=== PATIENT | male | born 1985 | race Caucasian/White ===

== ENCOUNTER 2016-05-01 13:52 | Emergency (ER) | payer SELFPAY ==
[~2016-05-01] VITALS: Ht 170.2 cm; Wt 89.5 kg
[~2016-05-01 13:52] MED LIST: DOXY100T17 PO; LORT5TAB PO; SULF1TAB47 PO; Z.0.NO CURRENT MEDS; [UNRECOGNIZED DRUG - CODE] EX
[2016-05-01 13:53] VITALS: BP 147/98; PULSE 119; RESP 16; TEMP 98.1; O2SAT 98
[2016-05-01] MEDS ORDERED: ADDE30TA PO (14:38)
--- NOTE | 2016-05-01 14:41 | PD ---
HPI Chief Complaint: GI Complaint Time Seen by Provider: 14:31 Travel History International Travel<30 days: No Contact w/Intl Traveler<30days: No Traveled to known affect area: No History of Present Illness HPI This patient complains of bright red rectal bleeding. Duration one week. Severity is mild to moderate. No presyncopal symptoms. He has had some pubic area abdominal cramps. No vomiting or diarrhea or fever. No prior history of GI bleeding. Takes no blood thinners. No alleviating factors. PFSH Past Medical History Hypertension: Yes Social History Alcohol Use: No Tobacco Use: No Allergies-Medications (Allergen,Severity, Reaction): Coded Allergies: Penicillin (Verified Allergy, Unknown, WAS TOLD BY MOTHER, 05/01/16) Reported Meds & Prescriptions Reported Meds & Active Scripts Active Reported Adderall (Amphetamine-Dextroamphetamine) 30 Mg Tab 30 Mg PO TID Avoid late evening doses. Space doses at least 4 to 6 hours if more than once/day dosing. Review of Systems General / Constitutional: No: Fever Eyes: No: Visual changes HENT: No: Headaches Cardiovascular: No: Chest Pain or Discomfort Respiratory: No: Shortness of Breath Gastrointestinal: Positive: Abdominal Pain, Hematochezia Genitourinary: No: Dysuria Musculoskeletal: No: Pain Skin: No Rash Neurologic: No: Weakness Psychiatric: No: Depression Endocrine: No: Polydipsia Hematologic/Lymphatic: No: Easy Bruising Physical Exam Narrative GENERAL: Well-nourished, well-developed patient in no apparent distress. SKIN: Warm and dry. HEAD: Atraumatic. Normocephalic. EYES: Pupils equal and round. No scleral icterus. No injection or drainage. ENT: No nasal bleeding or discharge. Mucous membranes pink and moist. NECK: Trachea midline. No JVD. CARDIOVASCULAR: Regular rate and rhythm. No murmur appreciated. RESPIRATORY: No accessory muscle use. Clear to auscultation. Breath sounds equal bilaterally. GASTROINTESTINAL: Abdomen soft, non-tender, nondistended. Hepatic and splenic margins not palpable. MUSCULOSKELETAL: No obvious deformities. No clubbing. No cyanosis. No edema. NEUROLOGICAL: Awake and alert. No obvious cranial nerve deficits. Motor grossly within normal limits. Normal speech. PSYCHIATRIC: Appropriate mood and affect; insight and judgment normal. Rectal: No external hemorrhoid or fissure Data Data Last Documented VS Vital Signs Date Time Temp Pulse Resp B/P Pulse Ox O2 Delivery O2 Flow Rate FiO2 05/01/16 13:53 98.1 119 16 147/98 98 Orders Iv Access Insert/Monitor (05/01/16 14:35) Complete Blood Count With Diff (05/01/16 14:35) Labs Laboratory Tests Test 05/01/16 14:45 White Blood Count 11.8 TH/MM3 Red Blood Count 5.71 MIL/MM3 Hemoglobin 15.1 GM/DL Hematocrit 47.8 % Mean Corpuscular Volume 83.7 FL Mean Corpuscular Hemoglobin 26.4 PG Mean Corpuscular Hemoglobin 31.6 % Concent Red Cell Distribution Width 13.7 % Platelet Count 330 TH/MM3 Mean Platelet Volume 7.7 FL Neutrophils (%) (Auto) 66.1 % Lymphocytes (%) (Auto) 24.4 % Monocytes (%) (Auto) 6.9 % Eosinophils (%) (Auto) 1.1 % Basophils (%) (Auto) 1.5 % Neutrophils # (Auto) 7.8 TH/MM3 Lymphocytes # (Auto) 2.9 TH/MM3 Monocytes # (Auto) 0.8 TH/MM3 Eosinophils # (Auto) 0.1 TH/MM3 Basophils # (Auto) 0.2 TH/MM3 CBC Comment DIFF FINAL Differential Comment MDM Medical Decision Making Medical Screen Exam Complete: Yes Emergency Medical Condition: Yes Medical Record Reviewed: Yes Differential Diagnosis Internal hemorrhoid, polyp, colitis Narrative Course I have reviewed the patient's electronic medical record. IV placed CBC shows normal hemoglobin Abdomen is soft and benign and nontender I don't have any clinical suspicion of emergent intra-abdominal process. Recommended GI follow-up to evaluate his lower GI bleed. Pain medicine written Diagnosis Primary Impression: Hematochezia Additional Instructions: The patient was advised to follow up with GI physician and return if they worsen. The patient was warned about potential sedation for the medications they will receive on prescription. Med/Other Pt SpecificInfo: Prescription(s) given Scripts Acetaminophen-Codeine (Tylenol-Codeine #3)300-30 mg Tab1 Tab PO Q6HR PRN (PAIN) #20 TAB Ref 0 Prov:Guerrero Castro MD 05/01/16 Disposition: 01 DISCHARGE HOME Condition: Stable Guerrero Castro MD May 01, 2016 14:41
[2016-05-01 14:58] LABS: AUTOMATED NEUTROPHIL # 7.8 TH/MM3 (1.8-7.7); BASOPHIL # 0.2 TH/MM3 (0-0.2); BASOPHIL % 1.5 % (0.0-2.0); EOSINOPHIL # 0.1 TH/MM3 (0-0.4); EOSINOPHIL % 1.1 % (0.0-4.0); HEMATOCRIT 47.8 % (39.0-51.0); HEMO FLAGS DIFF FINAL; LYMPH % 24.4 % (9.0-44.0); LYMPHOCYTE # 2.9 TH/MM3 (1.0-4.8); MEAN CELL VOLUME 83.7 FL (80.0-100.0); MEAN CORPUSCULAR HEMOGLOBIN 26.4 PG (27.0-34.0); MEAN CORPUSCULAR HGB CONC 31.6 % (32.0-36.0); MONO % 6.9 % (0.0-8.0); NEUT % 66.1 % (16.0-70.0); PLATELET COUNT 330 TH/MM3 (150-450); RED BLOOD COUNT 5.71 MIL/MM3 (4.50-5.90); RED CELL DISTRIBUTION WIDTH 13.7 % (11.6-17.2); WHITE BLOOD COUNT 11.8 TH/MM3 (4.0-11.0)
[2016-05-01] MEDS ORDERED: TYLETAB34 PO (15:52)
[2016-05-01 16:05] VITALS: BP 140/90; PULSE 96; RESP 18; O2SAT 98
== END 2016-05-01 16:05 | disposition home or self-care (01) ==
LOC: PHED 13:52
DX: K92.1 Melena (principal); I10 Essential (primary) hypertension
CPT/HCPCS: 85025; 99284

== ENCOUNTER 2016-09-18 21:14 | Emergency (ER) | payer SELFPAY ==
[~2016-09-18] VITALS: Ht 170.2 cm; Wt 85.0 kg
[~2016-09-18 21:14] MED LIST changes: +ADDE30TA PO; -DOXY100T17 PO; -LORT5TAB PO; -SULF1TAB47 PO; +TYLETAB34 PO; -Z.0.NO CURRENT MEDS; -[UNRECOGNIZED DRUG - CODE] EX
[2016-09-18 21:17] VITALS: BP 157/95; PULSE 80; RESP 16; TEMP 97.8; O2SAT 97
--- NOTE | 2016-09-18 23:02 | PD ---
HPI Chief Complaint: Suicide Ideation/Attempt Time Seen by Provider: 23:02 Travel History International Travel<30 days: No Contact w/Intl Traveler<30days: No Traveled to known affect area: No History of Present Illness HPI 31-year-old male came to the emergency room with history of depression and suicidal ideation. He says that he met with his family after 26 years and there has been a lot of stressful issues going on. He relapsed into IV Dilaudid abuse after being clean for 3 months and thing that this could be the main reason for that. He currently has left the house and is here with his luggage. He's been thinking of hurting himself by slitting his throat or walking in front of traffic. He does not have any psych diagnosis. He has history of ADHD. [facility] Past Medical History Narrative Medical List of her past medical, surgical, social and family history was reviewed from the nursing note. ADHD: Yes Hypertension: Yes Past Surgical History Surgical History: No Previous Surgery Social History Alcohol Use: No Tobacco Use: Yes (1/2 PPD) Substance Use: No Allergies-Medications (Allergen,Severity, Reaction): Coded Allergies: Penicillin (Verified Allergy, Unknown, WAS TOLD BY MOTHER, 09/18/16) Comments List of his allergies reviewed from the nursing note. Reported Meds & Prescriptions Reported Meds & Active Scripts Active No Active Prescriptions or Reported Medications Narrative Medication List of his home medications reviewed from the nursing note. Review of Systems Except as stated in HPI: all other systems reviewed are Neg Physical Exam Narrative GENERAL: Awake, alert, flat affect SKIN: Focused skin assessment warm/dry. HEAD: Atraumatic. Normocephalic. EYES: Pupils equal and round. No scleral icterus. No injection or drainage. ENT: No nasal bleeding or discharge. Mucous membranes pink and moist. NECK: Trachea midline. No JVD. CARDIOVASCULAR: Regular rate and rhythm. No murmur appreciated. RESPIRATORY: No accessory muscle use. Clear to auscultation. Breath sounds equal bilaterally. GASTROINTESTINAL: Abdomen soft, non-tender, nondistended. Hepatic and splenic margins not palpable. MUSCULOSKELETAL: No obvious deformities. No clubbing. No cyanosis. No edema. NEUROLOGICAL: Awake and alert. No obvious cranial nerve deficits. Motor grossly within normal limits. Normal speech. PSYCHIATRIC: Appropriate mood and affect; insight and judgment normal. Data Data Last Documented VS Vital Signs Date Time Temp Pulse Resp B/P Pulse Ox O2 Delivery O2 Flow Rate FiO2 09/19/16 02:22 82 16 140/82 97 09/18/16 21:17 97.8 Orders Complete Blood Count With Diff (09/18/16 23:04) Comprehensive Metabolic Panel (09/18/16 23:04) Psych Screen (09/18/16 23:04) Drug Screen, Random Urine (09/18/16 23:04) Alcohol (Ethanol) (09/18/16 23:04) Nicotine 21 Mg Patch.24 Hr (Habitrol 21 (09/19/16 01:30) Diet Regular Basic (09/19/16 Breakfast) Diet Regular Basic (09/19/16 Lunch) Labs Laboratory Tests Test 09/18/16 23:40 White Blood Count 10.2 TH/MM3 Red Blood Count 5.09 MIL/MM3 Hemoglobin 14.2 GM/DL Hematocrit 42.8 % Mean Corpuscular Volume 84.2 FL Mean Corpuscular Hemoglobin 27.9 PG Mean Corpuscular Hemoglobin 33.1 % Concent Red Cell Distribution Width 15.3 % Platelet Count 257 TH/MM3 Mean Platelet Volume 7.9 FL Neutrophils (%) (Auto) 66.9 % Lymphocytes (%) (Auto) 25.0 % Monocytes (%) (Auto) 6.3 % Eosinophils (%) (Auto) 1.2 % Basophils (%) (Auto) 0.6 % Neutrophils # (Auto) 6.8 TH/MM3 Lymphocytes # (Auto) 2.5 TH/MM3 Monocytes # (Auto) 0.6 TH/MM3 Eosinophils # (Auto) 0.1 TH/MM3 Basophils # (Auto) 0.1 TH/MM3 CBC Comment DIFF FINAL Differential Comment Sodium Level 139 MEQ/L Potassium Level 4.0 MEQ/L Chloride Level 106 MEQ/L Carbon Dioxide Level 27.5 MEQ/L Anion Gap 6 MEQ/L Blood Urea Nitrogen 12 MG/DL Creatinine 0.79 MG/DL Estimat Glomerular Filtration 114 ML/MIN Rate Random Glucose 116 MG/DL Calcium Level 9.2 MG/DL Total Bilirubin 0.3 MG/DL Aspartate Amino Transf 98 U/L (AST/SGOT) Alanine Aminotransferase 361 U/L (ALT/SGPT) Alkaline Phosphatase 60 U/L Total Protein 7.9 GM/DL Albumin 3.7 GM/DL Urine Opiates Screen POS Urine Barbiturates Screen NEG Urine Amphetamines Screen NEG Urine Benzodiazepines Screen NEG Urine Cocaine Screen NEG Urine Cannabinoids Screen POS Ethyl Alcohol Level LESS THAN 3 MG/DL MDM Medical Decision Making Medical Screen Exam Complete: Yes Emergency Medical Condition: Yes Medical Record Reviewed: Yes Differential Diagnosis Major depression, suicidal ideation, opiate abuse Narrative Course 12:42 AM patient is medically cleared for psych screen. I have Scott acted him as well. Procedures EKG Prior to Arrival: No Diagnosis Primary Impression: Major depression Qualified Code: F32.2 - Severe single current episode of major depressive disorder, without psychotic features Additional Impressions: Suicidal ideation Polysubstance abuse Scripts No Active Prescriptions or Reported Meds Michelle Rodriguez MD Sep 18, 2016 23:02
[2016-09-18 23:55] LABS: AUTOMATED NEUTROPHIL # 6.8 TH/MM3 (1.8-7.7); BASOPHIL # 0.1 TH/MM3 (0-0.2); BASOPHIL % 0.6 % (0.0-2.0); EOSINOPHIL # 0.1 TH/MM3 (0-0.4); EOSINOPHIL % 1.2 % (0.0-4.0); HEMATOCRIT 42.8 % (39.0-51.0); HEMO FLAGS DIFF FINAL; LYMPHOCYTE # 2.5 TH/MM3 (1.0-4.8); MEAN CELL VOLUME 84.2 FL (80.0-100.0); MEAN CORPUSCULAR HEMOGLOBIN 27.9 PG (27.0-34.0); MEAN CORPUSCULAR HGB CONC 33.1 % (32.0-36.0); MONO % 6.3 % (0.0-8.0); NEUT % 66.9 % (16.0-70.0); PLATELET COUNT 257 TH/MM3 (150-450); RED BLOOD COUNT 5.09 MIL/MM3 (4.50-5.90); RED CELL DISTRIBUTION WIDTH 15.3 % (11.6-17.2); WHITE BLOOD COUNT 10.2 TH/MM3 (4.0-11.0)
[2016-09-19 00:07] LABS: AMPHETAMINE, URINE NEG (NEG); BARBITURATES, URINE NEG (NEG); COCAINE, URINE NEG (NEG)
[2016-09-19 00:19] LABS: ANION GAP 6 MEQ/L (5-15); AST (GOT) 98 U/L (15-37); BICARBONATE 27.5 MEQ/L (21.0-32.0); BLOOD UREA NITROGEN 12 MG/DL (7-18); CHLORIDE 106 MEQ/L (98-107); GLOMERULAR FILTRATION RATE 114 ML/MIN (>89); SODIUM (NA) 139 MEQ/L (136-145)
[2016-09-19 00:21] LABS: ALT (GPT) 361 U/L (12-78)
[2016-09-19 00:23] LABS: ALKALINE PHOSPHATASE 60 U/L (45-117); TOTAL BILIRUBIN ADULT 0.3 MG/DL (0.2-1.0)
[2016-09-19] MEDS ORDERED: NICOTINE 21 MG/24 HR PATCH T-DERMAL ONE (01:30)
[2016-09-19 02:22] VITALS: BP 140/82; PULSE 82; RESP 16; O2SAT 97
== END 2016-09-19 15:17 ==
LOC: NEPD 21:14 → NEPJ 09-19 15:17
DX: F32.2 Major depressive disorder, single episode, severe without psychotic features (principal); R45.851 Suicidal ideations; F19.10 Other psychoactive substance abuse, uncomplicated; I10 Essential (primary) hypertension; F17.200 Nicotine dependence, unspecified, uncomplicated; Z86.59 Personal history of other mental and behavioral disorders
CPT/HCPCS: 80053; 80307; 85025; 99285

== ENCOUNTER 2017-12-08 11:32 | Inpatient (IN) ==
[2017-12-08] MEDS ORDERED: Tetanus/Diphtheria Toxoid Adult Vaccine Inj 0.5 ML Vial IM ONE (11:55)
[2017-12-08] MEDS ORDERED: Clindamycin 600 mg/NS Premix 600 MG/50 ML PIGGYBACK IV.SIG ONE (11:55)
[2017-12-08] MEDS ORDERED: Lidocaine 1% Inj 50 ML Vial INFILTRATN ONE (11:55)
--- NOTE | 2017-12-08 12:01 | ED ---
HPI General Chief complaint: Skin/Abscess/Foreign Body Stated complaint: Lt arm abscess Source: patient Mode of arrival: ambulatory Limitations: no limitations History of Present Illness HPI narrative: Patient is a 32-year-old male with history of IV drug abuse, presents the emergency room with complaints of swelling to his left forearm and antecubital fossa after injecting methamphetamines to the site. Patient reports that he noticed increased swelling and pain to his left antecubital fossa, this is the first time that this has happened. Patient reports that he was seen at [facility] yesterday but left as he felt that staff were rude to him. Patient is unsure of when his last immunization for tetanus was. Patient reports that pain is severe, nothing makes it better or worse. Patient with no past medical history, denies any fevers or chills or any other complaints. Tetanus Immunization: Unsure Severity: moderate Severity scale (1-10): 5 Relieving factors: none Exacerbating factors: none Context: none and IVDA Associated symptoms: denies other symptoms Treatments prior to arrival: none Related Data Home Medications Medication Instructions Recorded Confirmed No Known Home Medications 12/08/17 12/08/17 Allergies Allergy/AdvReac Type Severity Reaction Status Date / Time penicillin G Allergy Severe Shortness Verified 12/08/17 11:41 of Breath Review of Systems ROS: all other systems reviewed are negative [facility] Medical History Medical History Patient denies medical problems (Acute) Social History Social History Substance History: Active Abuse Second Hand Smoke Exposure: No Smoking Status: Current every day smoker Tobacco Type: Cigarettes How Often Do You Have a Drink Containing Alcohol: 2 to 4 times a month Recent Travel in [facility] within the Last 8 Weeks: No Recent Out of Country Travel within the Last 8 Weeks: No Substance Abuse Detail Other: Substance Use Status: Active Route Used Substance Abuse: Intravenously Substance Frequency: DAILY Immunization History Tetanus Immunization: <5 Years Hx Influenza Vaccine This Season: No Exam Narrative Exam Narrative: GENERAL: moderate distress SKIN: Focused skin assessment warm/dry. HEAD: Atraumatic. Normocephalic. EYES: Pupils equal and round. No scleral icterus. No injection or drainage. ENT: No nasal bleeding or discharge. Mucous membranes pink and moist. NECK: Trachea midline. No JVD. CARDIOVASCULAR: Regular rate and rhythm. No murmur appreciated. RESPIRATORY: No accessory muscle use. Clear to auscultation. Breath sounds equal bilaterally. GASTROINTESTINAL: Abdomen soft, non-tender, nondistended. Hepatic and splenic margins not palpable. MUSCULOSKELETAL: No obvious deformities. No clubbing. No cyanosis. No edema. LUE: Patient with swelling to his left antecubital fossa with tenderness and induration with areas of fluctuance over area of abscess. Patient with no neurovascular compromise, pulses are intact and palpable. There is tenderness with range of motion to his left elbow due to the edema. NEUROLOGICAL: Awake and alert. No obvious cranial nerve deficits. Motor grossly within normal limits. Normal speech. PSYCHIATRIC: Appropriate mood and affect; insight and judgment normal. Procedures Abscess I/D Site: upper extremity Side (if applicable): left Anesthetic used: lidocaine 1% Technique: incised with #11 blade Amount of fluid expressed (mL): 20 Irrigation: Yes (1liter NS used to irrigate abscess) Packing used?: iodoform Complications: pain Course Initial Documented Vital Signs Temperature 99.2 F 12/08/17 11:38 Pulse Rate 133 H 12/08/17 11:38 Respiratory Rate 20 12/08/17 11:38 Blood Pressure 194/85 H 12/08/17 11:38 Pulse Oximetry 99 12/08/17 11:38 Last Documented Vital Signs Temperature 99.4 F 12/08/17 14:41 Pulse Rate 110 H 12/08/17 14:41 Respiratory Rate 18 12/08/17 14:41 Blood Pressure 147/79 H 12/08/17 14:41 Pulse Oximetry 100 12/08/17 14:41 Medical Decision Making [facility] Narrative Medical decision making narrative: During the course of the patients emergency department visit, the patients history, examination, and differential diagnosis were reviewed with the patient. The patient was placed on a monitoring coordinator with oximetry and frequent blood pressure monitoring. The patient had an IV access obtained and blood work sent for analysis. The patient was initially provided IV clindamycin as well as a tetanus update The patients laboratory studies were reviewed Patient has a white blood cell count of 21.3, CT of the elbow with contrast shows 2 abscess collections, one is superficial and the second is deeper within the musculature. I did not I&D his abscess as he most likely will need to go to the OR for I&D of this deep muscle abscess. I did review case with Dr. Valadez who accepts pt to service Case reviewed with Dr. Weston with orthopedic surgery, request I&D and packing in the ER, he does not require any operative surgical intervention in the emergency at [facility] Er for IV antibiotic administration. Orthopedic surgery does not seem to be involved in this case at this time. Abscess was drained using 11 blade, iodoform packing placed - cultures sent Medical Screen Exam Complete: Yes Emergency Medical Condition: Yes Differential Diagnosis Differential Diagnosis: Cellulitis versus abscess versus retained foreign body Medical Records Medical records reviewed: Yes I reviewed the patient's medical records. Lab Data Result diagrams: 12/08/17 12:00 12/08/17 12:00 Lab Results 12/08/17 12/08/17 Range/Units 12:00 12:00 CBC w Diff Slide review pending WBC 21.3 H (4.0-11.0) th/mm3 RBC 5.01 (4.50-5.90) mil/mm3 Hgb 14.3 (13.0-17.0) gm/dL Hct 43.4 (39.0-51.0) % MCV 86.7 (80.0-100.0) fL MCH 28.6 (27.0-34.0) pg MCHC 33.0 (32.0-36.0) % RDW 13.6 (11.6-17.2) % Plt Count 360 (150-450) th/mm3 MPV 8.0 (7.0-11.0) fL Neut % (Auto) 78.7 H (16.0-70.0) % Lymph % (Auto) 14.5 (9.0-44.0) % Waller % (Auto) 5.2 (0.0-8.0) % Eos % (Auto) 0.5 (0.0-4.0) % Baso % (Auto) 1.1 (0.0-2.0) % Neut # (Auto) 16.8 H (1.8-7.7) th/mm3 Lymph # (Auto) 3.1 (1.0-4.8) th/mm3 Waller # (Auto) 1.1 H (0.0-0.9) th/mm3 Eos # (Auto) 0.1 (0.0-0.4) th/mm3 Baso # (Auto) 0.2 (0.0-0.2) th/mm3 WBC Differential Manual diff final Seg Neuts % (Manual) 81 H (16-70) % Band Neuts % (Manual) 2 (0-6) % Lymphocytes % (Manual) 14 (9-44) % Monocytes % (Manual) 3 (0-8) % Abs Neuts (Manual) 17.7 H (1.8-7.7) th/mm3 Differential Comment . Platelet Estimate Normal (Normal) Platelet Morphology Normal (Normal) RBC Morphology Normal (Normal) Sodium 138 (136-145) meq/L Potassium 4.2 (3.5-5.1) meq/L Chloride 101 (98-107) meq/L Carbon Dioxide 30.6 (21.0-32.0) meq/L Anion Gap 6 (5-15) meq/L BUN 12 (7-18) mg/dL Creatinine 0.69 (0.60-1.30) mg/dL Estimated GFR Greater than 89 (>89) mL/min Random Glucose 101 (74-106) mg/dL Calcium 9.2 (8.5-10.1) mg/dL Imaging Data Radiologist's impression: Elbow CT 12/08/17 12:01 CONCLUSION: Superficial and slightly deeper phlegmonous collections at the site of the visible bulging in the antecubital region of the left arm Discharge Plan Discharge Disposition Patient Disposition: 30 Still Patient Discharge Condition Condition: Serious Discharge Details Diagnosis: Abscess Physicians Team ED Provider: Diane Su Primary Care Provider: Primary Care Julissa Clifton Attending Provider: Jb Valadez Status ED Status: Admitted Patient
[2017-12-08] MEDS ORDERED: Lidocaine PF 1% Inj 30 ML Vial ONE (12:04)
[2017-12-08 12:18] LABS: Baso # (Auto) 0.2 th/mm3 (0.0-0.2); Baso % (Auto) 1.1 % (0.0-2.0); Eos # (Auto) 0.1 th/mm3 (0.0-0.4); Eos % (Auto) 0.5 % (0.0-4.0); Hematocrit 43.4 % (39.0-51.0); Hemoglobin 14.3 gm/dL (13.0-17.0); Lymph # (Auto) 3.1 th/mm3 (1.0-4.8); Lymph % (Auto) 14.5 % (9.0-44.0); Mean Corpuscular Hemoglobin 28.6 pg (27.0-34.0); Mean Corpuscular Volume 86.7 fL (80.0-100.0); Mono # (Auto) 1.1 th/mm3 (0.0-0.9); Mono % (Auto) 5.2 % (0.0-8.0); Neut # (Auto) 16.8 th/mm3 (1.8-7.7); Neut % (Auto) 78.7 % (16.0-70.0); Platelet Count 360 th/mm3 (150-450); Red Blood Count 5.01 mil/mm3 (4.50-5.90); Red Cell Distribution Width 13.6 % (11.6-17.2); White Blood Count 21.3 th/mm3 (4.0-11.0)
[2017-12-08 12:20] LABS: Chloride 101 meq/L (98-107); Potassium 4.2 meq/L (3.5-5.1); Sodium 138 meq/L (136-145)
[2017-12-08 12:23] LABS: Calcium 9.2 mg/dL (8.5-10.1)
[2017-12-08 12:24] LABS: Anion Gap 6 meq/L (5-15); Blood Urea Nitrogen 12 mg/dL (7-18); Carbon Dioxide 30.6 meq/L (21.0-32.0); Glucose,Random 101 mg/dL (74-106)
[2017-12-08 12:27] LABS: Glomerular Filtration Rate Greater Than 89 mL/min (>89)
[2017-12-08] MEDS ORDERED: Clindamycin 900 mg/NS Premix 900 MG/50 ML PIGGYBACK IV.SIG ONE (12:36)
[2017-12-08 12:43] LABS: Lymphocytes 14 % (9-44); Monocytes 3 % (0-8)
[2017-12-08 12:44] LABS: Platelet Estimate Normal (Normal); Platelet Morphology Normal (Normal); RBC Morphology Normal (Normal)
--- NOTE | 2017-12-08 12:54 | CT ---
EXAM DATE: 12/08/2017 12:46 PM EDT AGE/SEX: 32 years / Male INDICATIONS: Swelling to the left antecubital fossa area after injecting methamphetamines into the s ite. CLINICAL DATA: This is the patient's initial encounter. Patient reports that signs and symptoms have been present for 2 days and indicates a pain score of 6/10. MEDICAL/SURGICAL HISTORY: None. None. RADIATION DOSE: 25.32 CTDI (mGy) COMPARISON: No prior exams available for comparison. TECHNIQUE: Multiple contiguous axial images were acquired using a multirow detector CT scanner after intravenous administration of 95 ml Omnipaque 350 (iohexol) nonionic water-soluble contrast as a si ngle exam dose.. Multiplanar reconstruction was performed in the sagittal and coronal planes. Using automated exposure control and adjustment of the mA and/or kV according to patient size, radiation d ose was kept as low as reasonably achievable to obtain optimal diagnostic quality images. DICOM form at image data is available electronically for review and comparison. FINDINGS: There are para focal phlegmonous collections in the antecubital region including a superficial subcut aneous tissue phlegmon which measures approximately 4 cm by slightly less than 2 cm (long axis by jakob rt axis) and a second collection in the superficial aspect of the musculature which measures approxim ately 3 cm by slightly greater than 1 cm. There is moderate subcutaneous tissue edema throughout the region. The underlying bony elements are intact and unremarkable. There is no fluid around the neurov ascular bundle. CONCLUSION: Superficial and slightly deeper phlegmonous collections at the site of the visible bulging in the ant ecubital region of the left arm Electronically signed by: Dave Lazcano MD 12/08/2017 12:53 PM EDT
[2017-12-08] MEDS ORDERED: Bisacodyl 10 MG Supp RECTAL PRN (13:25)
[2017-12-08] MEDS ORDERED: Morphine Inj 4 MG, Morphine Inj 2 MG IV.PUSH ONE ×2 (13:30)
[2017-12-08] MEDS ORDERED: Sod Chloride 0.9% Inj 1,000 ML IV.SIG SCH ×2 (13:30→17:15)
[2017-12-08] MEDS: Acetaminophen 325 MG Tablet PO PRN (16:10)
--- NOTE | 2017-12-08 17:08 | P.HP ---
History of Present Illness Primary Care Physician: No Primary Care Physician Chief Complaint: Left arm skin infection History of Present Illness: This is a 32-year-old male patient with a known history of IV drug abuse who presented to the ED with complaints of left forearm swelling, redness and pain status post injecting methamphetamines 3 days ago. Patient states that he noticed the increased swelling and pain roughly a day after injecting. He denies taking anything for the pain at home. Denies any recent fevers, chills, cough, chest pain, headache, nausea, vomiting, diarrhea or dysuria. He does state that he presented to the [facility] yesterday for said symptoms although left AMA stating that he was not treated properly. He denies any past medical history. Denies any prescribed medications for home. Denies any previous surgery. Family history significant for cardiovascular disease. He does admit to smoking 1 pack per day of cigarettes for the last 10 years. He does admit to drinking vodka every few days. Patient states he has been injecting methamphetamines for the past 9 months. Prior to this he was clean and sober, states he held 2 jobs. He states he started doing drugs when he got involved with the wrong people in town. He is estranged from all family. Denies any prior workup for endocarditis including echocardiogram. - Diagnosis (1) Blister of left upper arm with infection (2) IV drug abuse (3) Sepsis (4) Sepsis affecting skin Inpatient Certification: I certify that the inpatient services were ordered in accordance with Medicare regulations governing the order. This includes certification that hospital inpatient services are reasonable and necessary and in the case of services not specified as inpatient-only under 42 CFR 419.22(n), that they are appropriately provided as inpatient services in accordance to with the 2-midnight benchmark under 43 CFR 412.3(e) Estimated Total Length of Stay (Days): 3 Plans for Post Hospital Care: Home Review of Systems All other systems reviewed negative except as stated in HPI PMFSH - History History Provided By: Patient - Medical History Medical History: Medical History (Last Reviewed 12/08/17 @ 11:59 by Diane Su) Patient denies medical problems (Acute) - Surgical History Surgical History: Surgical History (Last Updated 12/08/17 @ 17:07 by Claribel Rios) No history of previous surgery - Family History Family History: Family History (Last Updated 12/08/17 @ 17:07 by Claribel Rios) Mother Cardiovascular disease - Tobacco History Second Hand Smoke Exposure: Yes Tobacco Use In Past 30 Days: Yes Smoking Status: Current every day smoker Tobacco Type: Cigarettes - Alcohol History How Often Do You Have a Drink Containing Alcohol: 2 to 4 times a month - Substance Use History Substance History: Active Abuse - Substance Use Type Other Type: methamphetamine Status: Active Route Used: Intravenously Frequency: DAILY Reason for Use: Feels Good, Get High, Increase Energy Level, Socialization, Stay Awake - Travel History Recent Travel in the [facility] Within the Last 8 Weeks: No Recent Travel Out of the Country Within the Last 8 Weeks: No - Immunization History Tetanus Immunization: <5 Years Hx Influenza Vaccine This Season: No Medications and Allergies Active Medications: Active Medications Acetaminophen (Tylenol) 650 mg PO Q4H PRN PRN Reason: Fever, headache, pain 1-5 Last Admin: 12/08/17 16:10 Dose: 650 mg Al Hydroxide/Mg Hydroxide (Milk Of Magnesia Liq) 30 ml PO Q12H PRN PRN Reason: Mild Constipation Bisacodyl (Dulcolax Supp) 10 mg RECTAL DAILY PRN PRN Reason: SEVERE CONSITIPATION Sodium Chloride (Ns Inj) 1,000 mls @ 0 mls/hr IV.SIG BOLUS GELY Last Infusion: 12/08/17 16:23 Dose: Infused Lactulose (Lactulose Liq) 30 ml PO DAILY PRN PRN Reason: SEVERE CONSITIPATION Sennosides (Senokot) 17.2 mg PO Q12H PRN PRN Reason: Moderate Constipation Sodium Chloride (Ns Flush) 2 ml IV.FLUSH PRN PRN PRN Reason: FLUSH AFTER USING IV ACCESS Allergies Allergy/AdvReac Type Severity Reaction Status Date / Time penicillin G Allergy Severe Shortness Verified 12/08/17 11:41 of Breath Home Medications Medication Instructions Recorded Confirmed Type No Known Home Medications 12/08/17 12/08/17 History Exam Vital signs: Vital Signs 12/08/17 11:38 12/08/17 13:32 12/08/17 13:48 Temperature 99.2 F Pulse Rate 133 H 98 H Respiratory Rate 20 26 H 18 Blood Pressure 194/85 H 142/82 H Pulse Oximetry 99 100 12/08/17 14:41 12/08/17 16:00 Temperature 99.4 F 98.4 F Pulse Rate 110 H 130 H Respiratory Rate 18 16 Blood Pressure 147/79 H 157/92 H Pulse Oximetry 100 100 Intake & Output 12/07/17 12/08/17 12/08/17 18:59 06:59 18:59 Intake Total 1050 / 1050 Balance 1050 / 1050 Weight 77.2 kg Intake: IV 1050 / 1050 Cleocin 600 mg/NS Premix 600 mg 50 / 50 In 50 ml @ 100 mls/hr IV.SIG ONCE ONE Rx#:[id number] NS Inj 1,000 ML @ Wide Open IV. 1000 / 1000 SIG BOLUS GELY Rx#:[id number] Other: Date of Last Bowel Movement 12/08/17 Weight On Admission 77 kg Narrative: GENERAL: Well-developed, well-nourished patient. Tearful. SKIN: Warm and dry. No rash. Multiple scattered abrasions. Left calf annular sore, central scabbing, no drainage, pink around the edges. Appears to be healing. Left AC status post I&D in ED, left upper extremity with erythema, swelling and warm to touch. Serosanguineous drainage noted on dressing. HEAD: Normocephalic. Atraumatic. EYES: Pupils equal and round. No scleral icterus. No injection or drainage. ENT: No nasal bleeding or discharge. Mucous membranes pink and moist. NECK: Supple. Trachea midline. CARDIOVASCULAR: Regular rate and rhythm. S1, S2 noted. No murmur appreciated. RESPIRATORY: No accessory muscle use. Clear to auscultation. Breath sounds equal bilaterally. GASTROINTESTINAL: Abdomen soft, non-tender, nondistended. Normoactive bowel sounds x4. MUSCULOSKELETAL: No obvious deformities. Extremities without clubbing, cyanosis , or edema. NEUROLOGICAL: Awake and alert. No obvious cranial nerve deficits. Motor grossly within normal limits. 5/5 muscle strength in bilateral upper and lower extremities. Normal speech. PSYCHIATRIC: Appropriate mood and affect; insight and judgment normal. Results - Labs CBC & Chem 7: 12/08/17 12:00 12/08/17 12:00 Labs: Laboratory Results - last 24 hr 12/08/17 12/08/17 12:00 12:00 CBC w Diff Slide review pending WBC 21.3 H RBC 5.01 Hgb 14.3 Hct 43.4 MCV 86.7 MCH 28.6 MCHC 33.0 RDW 13.6 Plt Count 360 MPV 8.0 Neut % (Auto) 78.7 H Lymph % (Auto) 14.5 [place] % (Auto) 5.2 Eos % (Auto) 0.5 Baso % (Auto) 1.1 Neut # (Auto) 16.8 H Lymph # (Auto) 3.1 [place] # (Auto) 1.1 H Eos # (Auto) 0.1 Baso # (Auto) 0.2 WBC Differential Manual diff final Seg Neuts % (Manual) 81 H Band Neuts % (Manual) 2 Lymphocytes % (Manual) 14 Monocytes % (Manual) 3 Abs Neuts (Manual) 17.7 H Differential Comment . Platelet Estimate Normal Platelet Morphology Normal RBC Morphology Normal Sodium 138 Potassium 4.2 Chloride 101 Carbon Dioxide 30.6 Anion Gap 6 BUN 12 Creatinine 0.69 Estimated GFR Greater than 89 Random Glucose 101 Calcium 9.2 - Imaging Impressions Elbow CT 12/08/17 12:01 CONCLUSION: Superficial and slightly deeper phlegmonous collections at the site of the visible bulging in the antecubital region of the left arm Caprini VTE Risk Assessment Caprini VTE Risk Assessment: No/Low Risk (score <= 1) Caprini Risk Assessment Model: Point Value = 1 Point Value = 2 Point Value = 3 Point Value = 5 Age 41-60 Minor surgery BMI > 25 kg/m2 Swollen legs Varicose veins or History of unexplained or recurrent spontaneous Oral contraceptives or hormone replacement Sepsis (< 1 month) Serious lung disease, including pneumonia (< 1 month) Abnormal pulmonary function Acute myocardial infarction Congestive heart failure (< 1 month) History of inflammatory bowel disease Medical patient at bed rest Age 61-74 Arthroscopic surgery Major open surgery (> 45 min) Laparoscopic surgery (> 45 min) Malignancy Confined to bed (> 72 hours) Immobilizing plaster cast Central venous access Age >= 75 History of VTE Family history of VTE Factor V Leiden Prothrombin [id number] Lupus anticoagulant Anticardiolipin antibodies Elevated serum homocysteine Heparin-induced thrombocytopenia Other congenital or acquired thrombophilia Stroke (< 1 month) Elective arthroplasty Hip, pelvis, or leg fracture Acute spinal cord injury (< 1 month) Prophylaxis Regimen: Total Risk Factor Score Risk Level Prophylaxis Regimen 0-1 Low Early ambulation 2 Moderate Order ONE of the following: *Sequential Compression Device (SCD) *Heparin 5000 units SQ BID 3-4 Higher Order ONE of the following medications: *Heparin 5000 units SQ TID *Enoxaparin/Lovenox 40 mg SQ daily (WT < 150 kg, CrCl > 30 mL/min) *Enoxaparin/Lovenox 30 mg SQ daily (WT < 150 kg, CrCl > 10-29 mL/min) *Enoxaparin/Lovenox 30 mg SQ BID (WT < 150 kg, CrCl > 30 mL/min) AND/OR *Sequential Compression Device (SCD) 5 or more Highest Order ONE of the following medications: *Heparin 5000 units SQ TID (Preferred with Epidurals) *Enoxaparin/Lovenox 40 mg SQ daily (WT < 150 kg, CrCl > 30 mL/min) *Enoxaparin/Lovenox 30 mg SQ daily (WT < 150 kg, CrCl > 10-29 mL/min) *Enoxaparin/Lovenox 30 mg SQ BID (WT < 150 kg, CrCl > 30 mL/min) AND *Sequential Compression Device (SCD) Assessment and Plan - Assessment (1) Blister of left upper arm with infection Code(s): S40.822A - Blister (nonthermal) of left upper arm, initial encounter; L08.9 - Local infection of the skin and subcutaneous tissue, unspecified Status: Acute (2) IV drug abuse Code(s): F19.10 - Other psychoactive substance abuse, uncomplicated Status: Acute (3) Sepsis Code(s): A41.9 - Sepsis, unspecified organism Status: Acute (4) Sepsis affecting skin Code(s): A41.9 - Sepsis, unspecified organism Status: Acute - Plan This is a 32-year-old male patient with: Severe sepsis suspect secondary to left upper extremity infection secondary to IV drug abuse -Patient admits to a 3 day history of left upper extremity swelling, redness and pain as well as area with serous drainage status post injecting of methamphetamine. -Sepsis workup in progress. Meets criteria with leukocytosis 21,000, tachycardia heart rate in the 130s, suspected source left upper extremity infection. -CT of the left elbow showing superficial bulging as well as 1 abscess in the deeper musculature. -Orthopedic surgeon contacted by ED physician, at this time patient does not require any operative surgical intervention. -ED physician I&D area, dressing in place this time. RN to monitor and change dressing. Tetanus shot given in ED. -Patient denies any workup prior for endocarditis. He does state that he presented to the ED yesterday on the left AMA due to feeling like he was treated poorly. -An echocardiogram has been ordered to rule out endocarditis. Follow. -Encourage cessation of all IV drug use. -Patient expresses some sadness and is tearful on assessment states he has no family. Is interested in talking to a psychiatrist. Consulted, input and recommendations pending. -Wound culture drawn and pending. Will follow growth. -Started on IV clindamycin in ED. Will continue. Continue to monitor culture growth. -Blood cultures drawn and pending. Follow. -Supportive care. Tobacco abuse: Encouraged cessation. Nicotine patch offered, patient refused at this time. DVT prophylaxis: SCDs. Ambulation.
[2017-12-08] MEDS: Sod Chloride 0.9% Inj 1,000 ML IV.CONT SCH (17:37)
[2017-12-08] MEDS: Clindamycin 900 mg/NS Premix 900 MG/50 ML PIGGYBACK IV.SIG SCH (21:22)
[2017-12-09] MEDS: Sod Chloride 0.9% Inj 1,000 ML IV.CONT SCH ×2 (04:06→13:20)
[2017-12-09] MEDS: Clindamycin 900 mg/NS Premix 900 MG/50 ML PIGGYBACK IV.SIG SCH ×3 (04:08→22:02)
[2017-12-09 06:25] LABS: Baso # (Auto) 0.1 th/mm3 (0.0-0.2); Baso % (Auto) 0.6 % (0.0-2.0); Eos # (Auto) 0.2 th/mm3 (0.0-0.4); Eos % (Auto) 1.7 % (0.0-4.0); Hematocrit 36.8 % (39.0-51.0); Hemoglobin 12.2 gm/dL (13.0-17.0); Lymph # (Auto) 3.4 th/mm3 (1.0-4.8); Mean Corpuscular HGB Conc 33.2 % (32.0-36.0); Mean Corpuscular Hemoglobin 28.9 pg (27.0-34.0); Mean Platelet Volume 7.7 fL (7.0-11.0); Mono # (Auto) 0.8 th/mm3 (0.0-0.9); Mono % (Auto) 6.3 % (0.0-8.0); Neut # (Auto) 7.6 th/mm3 (1.8-7.7); Neut % (Auto) 63.4 % (16.0-70.0); Platelet Count 279 th/mm3 (150-450); Red Blood Count 4.23 mil/mm3 (4.50-5.90); Red Cell Distribution Width 13.4 % (11.6-17.2); White Blood Count 12.1 th/mm3 (4.0-11.0)
[2017-12-09 06:33] LABS: Chloride 108 meq/L (98-107); Potassium 3.8 meq/L (3.5-5.1); Sodium 140 meq/L (136-145)
[2017-12-09 07:07] LABS: Anion Gap 4 meq/L (5-15); Blood Urea Nitrogen 6 mg/dL (7-18); Calcium 7.9 mg/dL (8.5-10.1); Glomerular Filtration Rate Greater Than 89 mL/min (>89); Glucose,Random 112 mg/dL (74-106)
[2017-12-09] MEDS: Acetaminophen 325 MG Tablet PO PRN (08:43)
--- NOTE | 2017-12-09 10:18 | P.PN ---
Subjective Interval history: Follow-up left AC abscess and IV drug abuse. Patient seen and examined ambulating in room in no apparent distress. No acute events overnight. Psych evaluation today, started on Wellbutrin. Left upper extremity erythema as well as swelling improved overnight. Afebrile overnight. Awaiting cultures. Wound care evaluation ordered. Dressing changed. Physical Exam Vital signs: Vital Signs 12/08/17 11:38 12/08/17 13:32 12/08/17 13:48 Temperature 99.2 F Pulse Rate 133 H 98 H Respiratory Rate 20 26 H 18 Blood Pressure 194/85 H 142/82 H Pulse Oximetry 99 100 12/08/17 14:41 12/08/17 16:00 12/08/17 16:40 Temperature 99.4 F 98.4 F Pulse Rate 110 H 130 H Respiratory Rate 18 16 18 Blood Pressure 147/79 H 157/92 H Pulse Oximetry 100 100 12/08/17 20:00 12/09/17 00:00 Temperature 98.2 F 98.5 F Pulse Rate 110 H 88 Respiratory Rate 16 16 Blood Pressure 128/75 122/71 Pulse Oximetry 99 99 Intake & Output 12/08/17 12/09/17 12/09/17 18:59 06:59 18:59 Intake Total 2450 / 2450 1100 / 1100 Balance 2450 / 2450 1100 / 1100 Weight 77.2 kg Intake: IV 2050 / 2050 1100 / 1100 NS Inj 1,000 ML @ 100 mls/hr IV 1000 / 1000 .CONT .Q10H GELY Rx#:[id number] Cleocin 600 mg/NS Premix 600 mg 50 / 50 In 50 ml @ 100 mls/hr IV.SIG ONCE ONE Rx#:[id number] Cleocin 900 mg/NS Premix 900 mg 100 / 100 In 50 ml @ 100 mls/hr IV.SIG Q8H GELY Rx#:[id number] NS Inj 1,000 ML @ Wide Open IV. 1999 SIG BOLUS GELY Rx#:[id number] Oral 400 / 400 Other: # Voids 1 3 Date of Last Bowel Movement 12/08/17 Weight On Admission 77 kg Narrative: GENERAL: Well-developed, well-nourished patient in [facility]. SKIN: Warm and dry. No rash. Multiple track lynne. Left calf annular scab, dry with no drainage. Left upper SAMEER abscess, dressing changed, serosanguineous drainage, wound bed beefy, surrounding area pink, swelling improved. HEAD: Normocephalic. Atraumatic. EYES: Pupils equal and round. No scleral icterus. No injection or drainage. ENT: No nasal bleeding or discharge. Mucous membranes pink and moist. NECK: Supple. Trachea midline. CARDIOVASCULAR: Regular rate and rhythm. S1, S2 noted. No murmur appreciated. RESPIRATORY: No accessory muscle use. Clear to auscultation. Breath sounds equal bilaterally. GASTROINTESTINAL: Abdomen soft, non-tender, nondistended. Normoactive bowel sounds x4. MUSCULOSKELETAL: No obvious deformities. Extremities without clubbing, cyanosis , or edema. NEUROLOGICAL: Awake and alert. No obvious cranial nerve deficits. Motor grossly within normal limits. 5/5 muscle strength in bilateral upper and lower extremities. Normal speech. PSYCHIATRIC: Appropriate mood and affect; insight and judgment normal. Results - Labs CBC & Chem 7: 12/09/17 05:48 12/09/17 05:48 Laboratory Results - last 24 hr 12/08/17 12/08/17 12/08/17 12:00 12:00 18:18 CBC w Diff Slide review pending WBC 21.3 H RBC 5.01 Hgb 14.3 Hct 43.4 MCV 86.7 MCH 28.6 MCHC 33.0 RDW 13.6 Plt Count 360 MPV 8.0 Neut % (Auto) 78.7 H Lymph % (Auto) 14.5 [place] % (Auto) 5.2 Eos % (Auto) 0.5 Baso % (Auto) 1.1 Neut # (Auto) 16.8 H Lymph # (Auto) 3.1 [place] # (Auto) 1.1 H Eos # (Auto) 0.1 Baso # (Auto) 0.2 WBC Differential Manual diff final Seg Neuts % (Manual) 81 H Band Neuts % (Manual) 2 Lymphocytes % (Manual) 14 Monocytes % (Manual) 3 Abs Neuts (Manual) 17.7 H Differential Comment . Platelet Estimate Normal Platelet Morphology Normal RBC Morphology Normal Sodium 138 Potassium 4.2 Chloride 101 Carbon Dioxide 30.6 Anion Gap 6 BUN 12 Creatinine 0.69 Estimated GFR Greater than 89 Random Glucose 101 Lactic Acid 2.5 H Calcium 9.2 12/08/17 12/09/17 12/09/17 20:58 05:48 05:48 CBC w Diff Auto diff final WBC 12.1 H RBC 4.23 L Hgb 12.2 L D Hct 36.8 L MCV 87.0 MCH 28.9 MCHC 33.2 RDW 13.4 Plt Count 279 MPV 7.7 Neut % (Auto) 63.4 Lymph % (Auto) 28.0 [place] % (Auto) 6.3 Eos % (Auto) 1.7 Baso % (Auto) 0.6 Neut # (Auto) 7.6 Lymph # (Auto) 3.4 [place] # (Auto) 0.8 Eos # (Auto) 0.2 Baso # (Auto) 0.1 WBC Differential . Seg Neuts % (Manual) Band Neuts % (Manual) Lymphocytes % (Manual) Monocytes % (Manual) Abs Neuts (Manual) Differential Comment . Platelet Estimate Platelet Morphology RBC Morphology Sodium 140 Potassium 3.8 Chloride 108 H Carbon Dioxide 28.0 Anion Gap 4 L BUN 6 L Creatinine 0.42 L Estimated GFR Greater than 89 Random Glucose 112 H Lactic Acid 1.8 Calcium 7.9 L D Microbiology 12/08/17 15:30 Abscess - Arm Gram Stain - Final - Imaging Impressions Elbow CT 12/08/17 12:01 CONCLUSION: Superficial and slightly deeper phlegmonous collections at the site of the visible bulging in the antecubital region of the left arm Assessment and Plan - Assessment (1) Blister of left upper arm with infection Code(s): S40.822A - Blister (nonthermal) of left upper arm, initial encounter; L08.9 - Local infection of the skin and subcutaneous tissue, unspecified Status: Acute (2) IV drug abuse Code(s): F19.10 - Other psychoactive substance abuse, uncomplicated Status: Acute (3) Sepsis Code(s): A41.9 - Sepsis, unspecified organism Status: Acute (4) Sepsis affecting skin Code(s): A41.9 - Sepsis, unspecified organism Status: Acute - Plan This is a 32-year-old male patient with: Severe sepsis suspect secondary to left upper extremity infection secondary to IV drug abuse -Patient admits to a 3 day history of left upper extremity swelling, redness and pain as well as area with serous drainage status post injecting of methamphetamine. -Sepsis workup in progress. Meets criteria with leukocytosis 21,000, tachycardia heart rate in the 130s, suspected source left upper extremity infection. -Leukocytosis improved today to 12,000 as well as left upper extremity swelling and erythema. -CT of the left elbow showing superficial bulging as well as 1 abscess in the deeper musculature. -Orthopedic surgeon contacted by ED physician, at this time patient does not require any operative surgical intervention. -ED physician I&D area, packing and dressing in place. RN to monitor and change dressing. Tetanus shot given in ED. -Patient denies any workup prior for endocarditis. He does state that he presented to the ED yesterday on the left AMA due to feeling like he was treated poorly. -An echocardiogram has been ordered to rule out endocarditis. Follow. -Encourage cessation of all IV drug use. -Wound culture drawn and pending. Will follow growth. -Started on IV clindamycin in ED. Will continue. Continue to monitor culture growth. -Blood cultures drawn and pending. Follow. -Supportive care. Depression History of IV drug abuse -Psychiatry evaluation today, will be started on Wellbutrin. -Supportive care. Tobacco abuse: Encouraged cessation. Nicotine patch offered, patient refused at this time. DVT prophylaxis: SCDs. Ambulation. Discharge Planning: Awaiting wound care consult, clinical improvement and culture growth. Anticipate tomorrow. Case management consulted for discharge assistance, patient is homeless.
--- NOTE | 2017-12-09 14:35 | P.CONPSY ---
Provisional Diagnosis Admission Date: December 08, 2017 14:25 Hebo I.: Polysubstance dependence including heroine, amphetamines, cocaine, cannabis, history of ADHD, major depressive disorder History of Present Illness Service: Medicine Primary Care Provider: No Primary Care Physician Family Provider: No Primary Care Physician Chief Complaint: Left arm skin infection History of Present Illness: The patient is a 32-year-old man, domiciled with friends in [facility], single, unemployed, with psychiatric history of polysubstance dependence including IV amphetamines, cocaine, cannabis, heroine, major depressive disorder , ADHD, no previous psychiatric hospitalizations, no previous suicide attempts, no significant medical history, who presented to the ED with complaints of left forearm swelling, redness and pain status post injecting methamphetamines 3 days ago. Patient states that he noticed the increased swelling and pain roughly a day after injecting. He denies taking anything for the pain at home. Denies any recent fevers, chills, cough, chest pain, headache, nausea, vomiting, diarrhea or dysuria. He does state that he presented to the [facility] yesterday for said symptoms although left AMA stating that he was not treated properly. He denies any past medical history. Denies any prescribed medications for home. Denies any previous surgery. Family history significant for cardiovascular disease. He does admit to smoking 1 pack per day of cigarettes for the last 10 years. He does admit to drinking vodka every few days. Patient states he has been injecting methamphetamines for the past 9 months. Prior to this he was clean and sober, states he held 2 jobs. He states he started doing drugs when he got involved with the wrong people in town. He is estranged from all family. Denies any prior workup for endocarditis including echocardiogra. Admitted with Severe sepsis suspect secondary to left upper extremity infection secondary to IV drug abuse. Patient was consulted to psychiatry due to symptoms of depression. On my psychiatric evaluation I find a patient that is calm, cooperative, tearful at times. The patient reports he has been struggling with drug abuse for a long time now, he has been into rehabs in the last 2 years, with poor success. He says that he wants to stop using drugs, but the drugs are uncontrolled. The patient says that his plan is to be working, having friends, and dry with family , "but, rather than that I am a drug addict and I am going to ". At this point, the patient is quite tearful, but he denies hopelessness, he denies helplessness, he denies anhedonia, he reports good sleep and appetite in the hospital. Does report poor energy, generalized pessimism many periods of emotions and sadness. He denies suicidal enemas ideation, he denies visual and auditory hallucinations at the moment. Patient is willing to start medications for depression and to decrease craving of drugs. PPHx: with psychiatric history of polysubstance dependence including IV amphetamines, cocaine, cannabis, heroine, major depressive disorder, ADHD, no previous psychiatric hospitalizations, no previous suicide attempts PMHx: Cellulitis Substance Hx: Patient uses methamphetamines every day,IV, occasionally uses also alcohol, cocaine and cannabis, sometimes heroine Family PHx, denies family psychiatric history Social Hx: He was born and raised in [place], he lives with a friend in [facility] , single, unemployed, his highest level of education is high school Review of Systems Constitutional: Denies anorexia, Denies body ache(s), Denies chills, Denies daytime sleepiness, Denies excessive sweating, Denies fatigue, Denies fever(s), Denies headache(s), Denies increased appetite, Denies lack of energy, Denies malaise, Denies night sweats, Denies weakness, Denies weight gain, Denies weight loss, Denies other Eyes: Denies blind spots, Denies blurry vision, Denies bulging eyes, Denies change in vision, Denies double vision, Denies discharge, Denies dry eyes, Denies floaters, Denies irritation, Denies itchy eyes, Denies loss of vision, Denies pain, Denies requires corrective lenses, Denies sensitivity to light, Denies other Ears, Nose, Mouth, and Throat: Denies abnormal hearing, Denies bleeding gums, Denies bad breath, Denies change in voice, Denies dental pain, Denies difficulty swallowing, Denies dizziness, Denies dry mouth, Denies ear discharge , Denies ear pain, Denies facial pain, Denies headache(s), Denies hearing loss, Denies hoarseness, Denies lip swelling, Denies nosebleed, Denies mouth lesions, Denies mouth pain, Denies nasal congestion, Denies nasal discharge, Denies nasal obstruction, Denies nasal trauma, Denies neck lump, Denies neck pain, Denies nose pain, Denies pain with swallowing, Denies poor balance, Denies post nasal drip, Denies ringing in the ears, Denies sinus pain, Denies sinus pressure , Denies sore throat, Denies throat swelling, Denies tongue swelling, Denies other Cardiovascular: Denies chest pain, Denies chest pain at rest, Denies chest pain with activity, Denies excessive sweating, Denies fainting, Denies fast heart rate, Denies foot swelling, Denies generalized swelling, Denies irregular heart rhythm, Denies leg pain with activity, Denies leg sores, Denies leg swelling, Denies lightheadedness, Denies radiating jaw, neck or arm pain, Denies rapid, pounding, or irregular heartbeat, Denies shortness of breath, Denies shortness of breath with activity, Denies shortness of breath when lying down, Denies shortness of breath causing sudden awakening, Denies slow heart rate, Denies other Respiratory: Denies change in phlegm color, Denies chest congestion, Denies cough, Denies coughing up blood, Denies excessive phlegm production, Denies pain on inspiration, Denies pain with cough, Denies shortness of breath, Denies shortness of breath with activity, Denies snoring, Denies stridor, Denies wheezing, Denies other Gastrointestinal: Denies abdominal pain, Denies belching, Denies black, tarry stools, Denies bloating, Denies bright, red blood in stools, Denies change in bowel habits, Denies constant urge to pass stool, Denies change in stools, Denies coffee ground vomit, Denies constipation, Denies cramping, Denies difficulty swallowing, Denies excessive passing of gas, Denies feeling full early, Denies heartburn, Denies incontinent of stools, Denies loose stools, Denies nausea, Denies pain with swallowing, Denies vomiting, Denies vomiting blood, Denies other Genitourinary: Denies blood in semen, Denies blood in urine, Denies decreased urination, Denies difficulty urinating, Denies difficulty with ejaculations, Denies erectile dysfunction, Denies genital lesions, Denies genital pain, Denies painful urination, Denies side pain, Denies frequent nighttime urination , Denies painful ejaculations, Denies penile discharge, Denies scrotal swelling , Denies testicle lump, Denies testicle pain, Denies urinary frequency, Denies urinary hesitancy, Denies urinary incontinence, Denies urinary urgency, Denies other Musculoskeletal: Denies abnormal walking, Denies back pain, Denies body aches, Denies decreased muscle mass, Denies deformity, Denies joint pain, Denies joint swelling, Denies limited joint movement, Denies loss of height, Denies muscle cramps, Denies muscle weakness, Denies neck pain, Denies numbness, Denies radiating pain into limb, Denies stiffness, Denies tingling, Denies other Skin/Breast: Denies acne, Denies bleeding lesions, Denies boil, Denies breast swelling, Denies breast skin changes, Denies breast pain, Denies breast lump, Denies change in breast shape, Denies change in hair, Denies change in skin color, Denies changing lesions, Denies dry skin, Denies excessive hair growth, Denies hair loss, Denies itching, Denies lesions, Denies nail changes, Denies new lesions, Denies nipple discharge, Denies non-healing lesions, Denies redness , Denies sensitivity to light, Denies rash, Denies skin pain, Denies skin ulcer , Denies sores, Denies stretch lynne, Denies unusual bruising, Denies wounds, Denies yellowing of the skin, Denies other Neurologic: Denies abnormal hearing, Denies abnormal movements, Denies abnormal speech, Denies abnormal walking, Denies behavioral changes, Denies burning sensations, Denies confusion, Denies dizziness, Denies fainting, Denies frequent falls, Denies headache(s), Denies lack of coordination, Denies localized weakness, Denies loss of vision, Denies memory loss, Denies numbness, Denies other visual disturbances, Denies radiating pain, Denies restless legs, Denies convulsions, Denies seizure-like activity, Denies sensory deficit, Denies tingling, Denies tingling/numbness/burning sensations, Denies tremor(s), Denies unsteadiness, Denies weakness, Denies other Psychiatric: Reports irritability, Denies abnormal sleep pattern, Denies anxiety , Denies behavioral changes, Denies change in appetite, Denies change in sex drive, Denies confusion, Denies difficulty concentrating, Denies hearing things others do not hear, Denies hopelessness, Denies lack of enjoyment, Denies memory loss, Denies mood swings, Denies panic attacks, Denies paranoia, Denies seeing things others do not see, Denies sensing things others do not sense, Denies tactile hallucinations, Denies thoughts of hurting/killing others, Denies thoughts of hurting/killing yourself, Denies other PMFSH - History History Provided By: Patient - Medical History Medical History: Medical History (Last Reviewed 12/08/17 @ 11:59 by Diane Su) Patient denies medical problems (Acute) - Surgical History Surgical History: Surgical History (Last Updated 12/08/17 @ 17:07 by Claribel Rios) No history of previous surgery - Family History Family History: Family History (Last Updated 12/08/17 @ 17:07 by Claribel Rios) Mother Cardiovascular disease - Tobacco History Second Hand Smoke Exposure: Yes Tobacco Use In Past 30 Days: Yes Smoking Status: Current every day smoker Tobacco Type: Cigarettes - Alcohol History How Often Do You Have a Drink Containing Alcohol: 2 to 4 times a month - Substance Use History Substance History: Active Abuse - Substance Use Type Other Type: methamphetamine Status: Active Route Used: Intravenously Frequency: DAILY Reason for Use: Feels Good, Get High, Increase Energy Level, Socialization, Stay Awake - Travel History Recent Travel in the [facility] Within the Last 8 Weeks: No Recent Travel Out of the Country Within the Last 8 Weeks: No - Immunization History Tetanus Immunization: <5 Years Hx Influenza Vaccine This Season: No Medications and Allergies Active Medications: Active Medications Acetaminophen (Tylenol) 650 mg PO Q4H PRN PRN Reason: Fever, headache, pain 1-5 Last Admin: 12/09/17 08:43 Dose: 650 mg Al Hydroxide/Mg Hydroxide (Milk Of Magncesia Liq) 30 ml PO Q12H PRN PRN Reason: Mild Constipation Bisacodyl (Dulcolax Supp) 10 mg RECTAL DAILY PRN PRN Reason: SEVERE CONSITIPATION Bupropion HCl (Wellbutrin) 75 mg PO BID GELY Sodium Chloride (Ns Inj) 1,000 mls @ 0 mls/hr IV.SIG BOLUS GELY Last Infusion: 12/08/17 16:23 Dose: Infused Clindamycin/Sodium Chloride (Cleocin 900 Mg/Ns Premix) 900 mg in 50 mls @ 100 mls/hr IV.SIG Q8H GELY Last Admin: 12/09/17 13:16 Dose: 100 mls/hr Sodium Chloride (Ns Inj) 1,000 mls @ 0 mls/hr IV.SIG BOLUS GELY Last Infusion: 12/08/17 18:36 Dose: Infused Sodium Chloride (Ns Inj) 1,000 mls @ 100 mls/hr IV.CONT .Q10H GELY Last Admin: 12/09/17 13:20 Dose: 100 mls/hr Lactulose (Lactulose Liq) 30 ml PO DAILY PRN PRN Reason: SEVERE CONSITIPATION Sennosides (Senokot) 17.2 mg PO Q12H PRN PRN Reason: Moderate Constipation Sodium Chloride (Ns Flush) 2 ml IV.FLUSH PRN PRN PRN Reason: FLUSH AFTER USING IV ACCESS Allergies Allergy/AdvReac Type Severity Reaction Status Date / Time penicillin G Allergy Severe Shortness Verified 12/08/17 11:41 of Breath Home Medications Medication Instructions Recorded Confirmed Type No Known Home Medications 12/08/17 12/08/17 History Exam Vital signs: Vital Signs 12/08/17 14:41 12/08/17 16:00 12/08/17 16:40 Temperature 99.4 F 98.4 F Pulse Rate 110 H 130 H Respiratory Rate 18 16 18 Blood Pressure 147/79 H 157/92 H Pulse Oximetry 100 100 12/08/17 20:00 12/09/17 00:00 12/09/17 08:00 Temperature 98.2 F 98.5 F 98.2 F Pulse Rate 110 H 88 98 H Respiratory Rate 16 16 18 Blood Pressure 128/75 122/71 140/74 Pulse Oximetry 99 99 99 12/09/17 12:00 Temperature 98.2 F Pulse Rate 81 Respiratory Rate 18 Blood Pressure 128/59 L Pulse Oximetry 99 Intake & Output 12/08/17 12/09/17 12/09/17 18:59 06:59 18:59 Intake Total 2450 / 2450 1100 / 1100 1000 / 1000 Balance 2450 / 2450 1100 / 1100 1000 / 1000 Weight 77.2 kg Intake: IV 2050 / 2049 1100 / 1100 1000 / 1000 NS Inj 1,000 ML @ 100 mls/hr IV 1000 / 1000 1000 / 1000 .CONT .Q10H GELY Rx#:[id number] Cleocin 600 mg/NS Premix 600 mg 50 / 50 In 50 ml @ 100 mls/hr IV.SIG ONCE ONE Rx#:[id number] Cleocin 900 mg/NS Premix 900 mg 100 / 100 In 50 ml @ 100 mls/hr IV.SIG Q8H GELY Rx#:[id number] NS Inj 1,000 ML @ Wide Open IV. 1999 SIG BOLUS GELY Rx#:[id number] Oral 400 / 400 Other: # Voids 1 3 Date of Last Bowel Movement 12/08/17 Weight On Admission 77 kg Narrative: No tremors, no EPS, no psychomotor agitation retardation, no stiffness, no gait disturbance - Constitutional moderate distress - Routine HEENT Exam Head: Present: normocephalic, atraumatic Eye: Present: EOMI, PERRL Mental Status Examination Appearance: Appropriate ( ) Consciousness: Alert Orientation: x4 Motor Activity: Normal gait Speech: Unremarkable Language: Adequate Fund of Knowledge: Adequate Attention and Concentration: Adequate Memory: Unremarkable Mood: Sad Affect: Sad Thought Process & Associations: Intact Thought Content: Appropriate Hallucination Type: None Delusion Type: None Suicidal Ideation: No Suicidal Plan: No Suicidal Intention: No Homicidal Ideation: No Homicidal Plan: No Homicidal Intention: No Insight: Fair Judgment: Impulsive Assessment and Plan - Assessment (1) Major depressive disorder Code(s): F32.9 - Major depressive disorder, single episode, unspecified Status : Acute - Plan Plan: Estimated LOS: [] days Psychiatric evaluation today the patient presents with symptomatology of acute depression, he reports frequent sadness, feeling vulnerable and fragile, moments of strong emotions, is quite tearful during the interview, also reports decreased level of energy, generalized pessimism, but he denies hopelessness, he denies helplessness, he denies anhedonia, he denies suicidal and homicidal ideation, he denies visual and auditory hallucinations. The patient identifies as a major acute stressor continue use of drugs, poor family and social support , financial problems. No psychotic or manic symptoms are present. The patient has a psychiatric history of depression, ADHD, polysubstance dependence, IV amphetamine use disorder, poor impulse control. The patient does not meet criteria for involuntary psychiatric admission at this moment. I will start Wellbutrin 75 mg twice daily for depression, also for ADHD symptoms and to decrease craving of drugs. Extensive support, motivational psychoeducation provided. Justification for Continued Inpatient Stay: No admission is indicated. (1) Major depressive disorder Qualifiers: Major depression recurrence: recurrent Major depression episode severity: severe Psychotic features: without psychotic features
[2017-12-09] MEDS: buPROPion 75 MG Tablet PO SCH ×2 (15:58→22:02)
--- NOTE | 2017-12-09 16:47 | P.PNWCN ---
Wound Care Nurse Consult Description: Wound consult ordered by Selin DORSEY for wound management. Communicated with: Makla WYATT, Selin DORSEY Recommendation: 1. Cleanse left AC wound with normal saline ,pat dry Apply Cavilon skin prep to periwound. 2. Gently pack post I/D wound base with Maxorb AG cut in single strip leaving tail exposed cover with dry dressing ,secure with rolled gauze paper tape. 3. Sign and date all dressings. 4. Change dressing every other day or as needed for dislodgement/exudate management. 5. Please contact wound nurse if treatment fails or wound worsens. Additional information: Patient was seen today for by life insurance underwriter for wound management of left AC abscess post I/D.Patient alert and oriented x4 resting in bed with no acute distress.Patient removed rolled gauze dressing from left AC, Patient refused at this time for life insurance underwriter to remove packing states "it was just applied" Utilization Engineer was able to visualize incision site and periwound.No erythema /induration noted to periwound.Scant serous exudate noted to prior dressing.Utilization Engineer was able to perform teaching to patient on dressing changes and care package left with patient.Patient states he thinks this is something he can manage on own will contact nurse assistance needed .Utilization Engineer gave report/recommendations to Kelli WYATT.No further questions upon writers departure. Wound/Pressure Injury - Wound Left Arm Wound Assessment: Ongoing Wound Type: Abscess Is This a Chronic Wound: No Requested from Provider a Wound Care Consult: No (Shelley WYATT,[facility] seen 12/09) Wound Bed Appearance: Red Drainage Description: Sanguinous Drainage Amount: Moderate Drainage Odor: No Odor Dressing Status: Open to Air Cleansing Solution: Saline Wound Packing Type: Alginate Primary Dressing: Gauze Pad Cover Dressing: Gauze Roll/Wrap Tape Type: Paper Left Posterior Calf Length: 5 Width: 5 Depth: 0
--- NOTE | 2017-12-09 17:59 | ECHRPT ---
Indication: Sepsis, Endocarditis CONCLUSIONS Normal left ventricular size. Wall thickness is normal. The left ventricular systolic function is low normal with an estimated ejection fraction in the rang e of 50- 55%. Trace mitral valve regurgitation. There is trace tricuspid valve regurgitation. BP: / HR: Rhythm: MEASUREMENTS (Male / Female) Normal Values Technical Quality: 2D ECHO LV Diastolic Diameter PLAX 5.0 cm 4.2 - 5.9 / 3.9 - 5.3 cm LV Systolic Diameter PLAX 3.9 cm IVS Diastolic Thickness 1.2 cm 0.6 - 1.0 / 0.6 - 0.9 cm LVPW Diastolic Thickness 0.9 cm 0.6 - 1.0 / 0.6 - 0.9 cm LV Relative Wall Thickness 0.4 LA Systolic Diameter LX 4.1 cm 3.0 - 4.0 / 2.7 - 3.8 cm M-MODE Aortic Root Diameter MM 3.0 cm AV Cusp Separation MM 2.1 cm DOPPLER Mitral E Point Velocity 60.7 cm/s Mitral A Point Velocity 56.3 cm/s Mitral E to A Ratio 1.1 TR Peak Velocity 132.0 cm/s TR Peak Gradient 7.0 mmHg Right Atrial Pressure 10.0 mmHg Pulmonary Artery Systolic Pressu 17.0 mmHg Right Ventricular Systolic Press 17.0 mmHg FINDINGS LEFT VENTRICLE Normal left ventricular size. Wall thickness is normal. The left ventricular systolic function is low normal with an estimated ejection fraction in the rang e of 50- 55%. RIGHT VENTRICLE Normal right ventricular size and systolic function. LEFT ATRIUM The left atrial size is normal. RIGHT ATRIUM The right atrial size is normal. ATRIAL SEPTUM Normal atrial septal thickness without atrial level shunting by limited color doppler interrogation. AORTA The aortic root and proximal ascending aorta are normal in size on limited imaging. MITRAL VALVE Trace mitral valve regurgitation. AORTIC VALVE Trileaflet aortic valve. No aortic valve stenosis or regurgitation. TRICUSPID VALVE There is trace tricuspid valve regurgitation. PULMONARY VALVE No pulmonary valve regurgitation or stenosis. VESSELS The inferior vena cava is normal in size. PERICARDIUM No pericardial effusion. Komal Figueredo MD, FACC (Electronically Signed) Final Date:09 December 2017 17:58
[2017-12-10] MEDS: Sod Chloride 0.9% Inj 1,000 ML IV.CONT SCH (02:29)
[2017-12-10] MEDS: Clindamycin 900 mg/NS Premix 900 MG/50 ML PIGGYBACK IV.SIG SCH ×2 (06:37→15:34)
[2017-12-10] MEDS: buPROPion 75 MG Tablet PO SCH (08:57)
--- NOTE | 2017-12-10 12:09 | P.DS ---
Date of admission: 12/08/17 14:25 Primary care physician: No Primary Care Physician Attending physician on discharge: Jb Valadez Anticipated date of discharge: 12/10/17 Brief History from admission: This is a 32-year-old male patient with a known history of IV drug abuse who presented to the ED with complaints of left forearm swelling, redness and pain status post injecting methamphetamines 3 days ago. Patient states that he noticed the increased swelling and pain roughly a day after injecting. He denies taking anything for the pain at home. Denies any recent fevers, chills, cough, chest pain, headache, nausea, vomiting, diarrhea or dysuria. He does state that he presented to the [facility] yesterday for said symptoms although left AMA stating that he was not treated properly. He denies any past medical history. Denies any prescribed medications for home. Denies any previous surgery. Family history significant for cardiovascular disease. He does admit to smoking 1 pack per day of cigarettes for the last 10 years. He does admit to drinking vodka every few days. Patient states he has been injecting methamphetamines for the past 9 months. Prior to this he was clean and sober, states he held 2 jobs. He states he started doing drugs when he got involved with the wrong people in town. He is estranged from all family. Denies any prior workup for endocarditis including echocardiogram. DS: Diagnosis - Discharge Diagnosis (1) Abscess Status: Acute (2) IV drug abuse Status: Acute DS: Medications - Discharge Medications Prescriptions: bupropion HCl 75 mg PO BID #28 tab clindamycin HCl [Cleocin HCl] 300 mg PO QID #56 cap DS: Summary Hospital Course: 32-year-old male with known history of IV drug use who presented to the hospital multiple times within the last week due to abscess and cellulitis of the left arm and injection sites. Patient had workup done and found to have criteria meeting sepsis with leukocytosis, infection source. Patient admitted the hospital with empirical antibiotics include clindamycin. Cultures were ascertained. Patient did undergo further workup to rule out endocarditis with echocardiogram which did not indicate any vegetation on the valves. Patient continued treatment with IV antibiotics until culture was finalized. Culture did indicate Beta strep group C. Blood culture remained negative during his stay in the hospital. Patient does have history of significant depression/anxiety and psychiatry was consulted due to the patient's history and persistent IV drug use. Is recommended patient start on Wellbutrin. Patient clinically stable this time. No longer found to have any sepsis criteria. Patient remains afebrile. Patient will be discharged with appropriate antibiotics. - Time Spent with Patient Total time spent providing and/or coordinating discharge services: Greater than 30 minutes - Quality: VTE Deep Vein Thrombosis/Pulmonary Embolism Present on Admission: No Exam Vital signs: Vital Signs 12/09/17 12:00 12/09/17 16:00 12/09/17 20:00 Temperature 98.2 F 97.6 F 97.8 F Pulse Rate 81 87 67 Respiratory Rate 18 18 18 Blood Pressure 128/59 L 126/69 133/69 Pulse Oximetry 99 100 96 12/10/17 00:00 12/10/17 08:00 Temperature 97.7 F 98.0 F Pulse Rate 87 89 Respiratory Rate 18 16 Blood Pressure 123/73 143/78 H Pulse Oximetry 99 99 Intake & Output 12/09/17 12/10/17 12/10/17 18:59 06:59 18:59 Intake Total 1050 / 1050 1530 / 1530 50 / 50 Output Total 550 / 550 Balance 1050 / 1050 980 / 980 50 / 50 Weight 77.2 kg Intake: IV 1050 / 1050 1050 / 1050 50 / 50 NS Inj 1,000 ML @ 100 mls/hr IV 1000 / 1000 1000 / 1000 .CONT .Q10H GELY Rx#:[id number] Cleocin 900 mg/NS Premix 900 mg 50 / 50 50 / 50 50 / 50 In 50 ml @ 100 mls/hr IV.SIG Q8H GELY Rx#:[id number] Oral 480 / 480 Output: Urine 550 / 550 Other: # Voids 4 Date of Last Bowel Movement 12/08/17 # Bowel Movements 1 Narrative: GENERAL: Well-developed, well-nourished, in no acute distress. alert and orientated HEENT: Head is normocephalic without any lesions or masses noted. Facial features are symmetric. Eyes: Extraocular muscles are intact. Conjunctivae were clear. NECK: Supple without any masses. Trachea midline no deviation. No JVD, CARDIAC: Regular rhythm, regular rate. S1/S2 are heard. No murmurs gallops or rubs. LUNGS: Clear to auscultation bilaterally. No wheeze, rhonchi or rales. No use of accessory muscles on inspiration or expiration. ABDOMEN: Soft, nontender. Nondistended. Bowel sounds heard in all 4 quadrants. No organomegaly or masses. Negative rebound, negative guarding EXTREMITIES: No edema, pulses are equal bilaterally. No cyanosis or clubbing. Left upper extremity has bandages noted in the antecubital fossa NEUROLOGY: Mood and affect appear appropriate. Cranial nerves II through XII grossly intact. Moving all extremities, speech is clear Results Procedures completed during hospitalization: ECHOCARDIOGRAM CONCLUSIONS Normal left ventricular size. Wall thickness is normal. The left ventricular systolic function is low normal with an estimated ejection fraction in the range of 50- 55%. Trace mitral valve regurgitation. There is trace tricuspid valve regurgitation. Labs on day of discharge: Preliminary micro results at discharge 12/08/17 15:30 Wound Culture - Preliminary Abscess - Arm Beta Streptococcus Group C 12/08/17 12:00 Aerobic Blood Culture - Preliminary Blood - Peripheral No growth in 2 days Anaerobic Blood Culture - Preliminary No growth in 2 days - Impressions ITS Impressions Elbow CT 12/08/17 12:01 CONCLUSION: Superficial and slightly deeper phlegmonous collections at the site of the visible bulging in the antecubital region of the left arm Discharge Plan - Discharge Disposition Patient Disposition: Discharge Home - Discharge Condition Condition: Serious - Discharge Order Discharge Orders: Discharge Order (Routine); Ordered 12/10/17 Ordered By: Guerrero Rich - Discharge Details Anticipated Discharge Date: 12/10/17 - Physicians Team Primary Care Provider: Primary Care Etienne,Julissa Attending Provider: Jb Valadez Other Providers: Francisco Rodriguez MD
== END 2017-12-10 13:23 | disposition home or self-care (01) ==
LOC: PHED 11:32 → PHEDA 14:25 → PH3 15:38
PROVIDERS: ADMIT Hospitalist; ATTEND Hospitalist